=== PATIENT | female | born 1960 | race Caucasian/White ===

== ENCOUNTER 2017-07-30 09:02 | Emergency (ER) | payer MEDICAID, OTHER ==
[2017-07-30 09:57] VITALS: RESP 20; O2SAT 98
[2017-07-30 10:55] LABS: BASO % 0.8 % (0.0-2.0); EOS % 0.6 % (0.0-4.0); HEMOGLOBIN 13.5 g/dL (12.0-16.0); LYMPH # 1.1 K/uL (1.0-4.3); LYMPH % 22.5 % (20.0-40.0); MEAN CELL VOLUME 88.6 fl (81.0-99.0); MEAN CORPUSCULAR HEMOGLOBIN 29.9 pg (27.0-31.0); MEAN CORPUSCULAR HGB CONC 33.8 g/dL (33.0-37.0); MEAN PLATELET VOLUME 9.3 fl (7.2-11.7); MONO # 0.3 K/uL (0.0-0.8); MONO % 6.2 % (0.0-10.0); NEUT # 3.4 K/uL (1.8-7.0); NEUT % 69.9 % (50.0-75.0); NRBC % 0.1 % (0.0-0.0); RBC 4.52 Mil/uL (3.80-5.20); RED CELL DISTRIBUTION WIDTH 13.9 % (11.5-14.5); WHITE BLOOD COUNT 4.8 K/uL (4.8-10.8)
--- NOTE | 2017-07-30 11:04 | ED PDOC ---
HPI: Abdomen Time Seen by Provider: 07/30/17 09:54 Chief Complaint (Nursing): Abdominal Pain History Per: Patient History/Exam Limitations: no limitations Onset/Duration Of Symptoms: Gradual Current Symptoms Are (Timing): Still Present Severity: Mild Location Of Pain/Discomfort: LLQ Quality Of Discomfort: Dull, Aching Associated Symptoms: denies: Fever, Chills, Nausea, Vomiting, Diarrhea, Constipation, Urinary Symptoms Exacerbating Factors: None Alleviating Factors: None Additional History Per: Patient Additional Complaint(s): acc to pt she has left lower quadrant pain x 2 days. no trauma no urinary complaints Past Medical History Reviewed: Historical Data, Nursing Documentation, Vital Signs Vital Signs: Last Vital Signs Temp 98.5 F 07/30/17 09:55 Pulse 84 07/30/17 09:55 Resp 20 07/30/17 09:55 BP 140/84 07/30/17 09:55 Pulse Ox 98 07/30/17 11:14 - Medical History PMH: Osteoporosis - Surgical History Surgical History: Cholecystectomy - Family History Family History: States: No Known Family Hx - Living Arrangements Living Arrangements: With Family - Social History Current smoker - smoking cessation education provided: No - Home Medications Home Medications: Ambulatory Orders Medication Instructions Recorded Famotidine [Pepcid] 20 mg PO BID #10 tab 03/04/16 Ondansetron ODT [Zofran ODT] 4 mg PO Q8 PRN #8 odt 03/04/16 Amoxicillin/Clavulanate [Augmentin 1 tab PO BID #20 tab 07/30/17 875 MG-125 MG] Naproxen 500 mg PO BID PRN #20 ect 07/30/17 Polyethylene Glycol 3350 [Miralax] 17 gm PO DAILY 5 Days ml 07/30/17 - Allergies Allergies/Adverse Reactions: Allergies Allergy/AdvReac Type Severity Reaction Status Date / Time No Known Allergies Allergy Verified 07/30/17 09:55 Review of Systems ROS Statement: Except As Marked, All Systems Reviewed And Found Negative Constitutional: Negative for: Fever, Chills Cardiovascular: Negative for: Chest Pain, Palpitations Respiratory: Negative for: Cough, Shortness of Breath Gastrointestinal: Negative for: Nausea, Vomiting, Abdominal Pain Neurological: Negative for: Weakness, Numbness, Headache Physical Exam - Reviewed Nursing Documentation Reviewed: Yes Vital Signs Reviewed: Yes - Physical Exam Appears: Positive for: Uncomfortable Head Exam: Positive for: ATRAUMATIC, NORMAL INSPECTION, NORMOCEPHALIC Eye Exam: Positive for: Normal appearance, EOMI, PERRL Neck: Positive for: Normal, Painless ROM, Supple Cardiovascular/Chest: Positive for: Regular Rate, Rhythm, Chest Non Tender. Negative for: Murmur, Bradycardia, Tachycardia Respiratory: Positive for: Normal Breath Sounds. Negative for: Decreased Breath Sounds, Accessory Muscle Use, Rales, Rhonchi, Stridor, Wheezing Pulses-Radial (L): 2+ Pulses-Radial (R): 2+ Gastrointestinal/Abdominal: Positive for: Normal Exam, Bowel Sounds, Soft. Negative for: Tenderness, Organomegaly Back: Positive for: Normal Inspection. Negative for: L CVA Tenderness, R CVA Tenderness, Vertebral Tenderness Extremity: Positive for: Normal ROM. Negative for: Tenderness, Pedal Edema, Calf Tenderness, Deformity Neurologic/Psych: Positive for: Alert, finishing trimmer II-XII, Oriented. Negative for: Motor/Sensory Deficits - Laboratory Results Result Diagrams: 07/30/17 10:40 07/30/17 10:40 Urine dip results: Positive for: Blood (mod). Negative for: Leukocyte Esterase , Nitrate, Ketones, Glucose, Bilirubin, Protein - ECG ECG: Positive for: Interpreted By Me ECG Rhythm: Positive for: Normal QRS, Normal ST Segment, Sinus Rhythm (76). Negative for: ST/T Changes Interpretation Of Abn EKG: rate of 76, no evidence of ischemia O2 Sat by Pulse Oximetry: 98 Pulse Ox Interpretation: Normal - Progress ED Course And Treament: PROCEDURE: CT scan abdomen pelvis dated 07/30/2017 HISTORY: Left flank pain; rule out stone COMPARISON: Comparison made with CT scan of the abdomen pelvis 03/04/2016 TECHNIQUE: Contiguous helical/transaxial images of the abdomen and pelvis without oral or intravenous contrast material. . Additional 2 dimensional sagittal and coronal reformats generated. Radiation dose: Total exam DLP = This CT exam was performed using one or more of the following dose reduction techniques: Automated exposure control, adjustment of the mA and/or kV according to patient size, and/or use of iterative reconstruction technique. FINDINGS: LOWER THORAX: Small hiatal hernia with slight wall thickening of the distal esophagus likely due to protrusion of gastric mucosa. Possibility of esophagitis or other intrinsic/invasive wall lesion not excluded. . Heart size within range of normal. No significant pericardial effusion. LIVER: Liver exhibits normal size measuring approximately 16 cm in CC dimension. Liver demonstrates relatively normal attenuation pattern without mass collection or calcification.Previously noted mild intrahepatic biliary ductal dilatation less well seen on this study due to the lack of circulating intravenous contrast material. Findings could be due to post cholecystectomy status GALLBLADDER AND BILE DUCTS: Gallbladder is not visualized and presumably has been resected despite the lack of metallic clips in the gallbladder fossa. Clinical correlation with surgical history. Reason PANCREAS: Unremarkable. No mass. No ductal dilatation. SPLEEN: Spleen exhibits normal size. No obvious splenic masses or collections seen on this noncontrast study. Few scattered punctate splenic calcifications suggesting prior exposure to granulomatous disease process. ADRENALS: Unremarkable. KIDNEYS AND URETERS: No evidence of nephrolithiasis or hydronephrosis. Less well seen is a small approximately 11 mm cortical cyst posterior aspect midpole left kidney BLADDER: Urinary bladder incompletely distended which may account for slight thick- walled appearance. Rule out cystitis REPRODUCTIVE: Apparent hysterectomy APPENDIX: Normal-appearing appendix best seen on coronal image number [id number]. BOWEL: Evaluation of the bowel is somewhat limited due to the lack of oral contrast material. Stomach is incompletely distended which presumably accounts thick- walled appearance. The possibility of a gastritis not excluded. Visualized loops of small bowel exhibit normal contour and caliber. No evidence of acute mechanical small bowel obstruction. There is a large amount of stool seen throughout most of the colon (right side greater than left) consistent with fecal retention/constipation. Scattered colonic diverticula are present however no radiographic evidence of acute diverticulitis. PERITONEUM: Unremarkable. No fluid collection. No free air. Small fat containing umbilical hernia. In addition, there is small upper abdominal right parasagittal ventral wall hernia which contains some mesenteric fat. LYMPH NODES: Unremarkable. No enlarged lymph nodes. VASCULATURE: Unremarkable. No aortic aneurysm. BONES: Mild multilevel degenerative spondylosis of the lower thoracic and lumbar spine. OTHER FINDINGS: None. IMPRESSION: No evidence of nephrolithiasis or hydronephrosis. There is a small posterior cortical cyst midpole left kidney which less well seen due to the lack of circulating intravenous contrast material on the current exam. Incomplete urinary bladder distention likely accounts for slight thick-walled appearance however rule out cystitis with urinalysis correlation Findings consistent with constipation. Diverticulosis without definitive radiographic evidence of acute diverticulitis. Several tiny splenic calcifications consistent with calcified granulomata. Previously noted mild intrahepatic biliary ductal dilatation less well seen on this study due to the lack of circulating intravenous contrast material. Apparent cholecystectomy and hysterectomy. Clinical correlation recommended Small umbilical hernia and small upper abdominal right parasagittal ventral wall hernia advise antibiotics advise close f/u with pmd or med clinic, advise naproxen for pain all of pt's questions were answered and pt agree's with plan Re-evaluation Time: 12:41 Condition: Improved Disposition - Clinical Impression Clinical Impression: UTI (urinary tract infection) - Patient ED Disposition Is Patient to be Admitted: No Counseled Patient/Family Regarding: Studies Performed, Diagnosis, Need For Followup, Rx Given - Disposition Referrals: [facility] [Outside] (2 to 3 days) Disposition: Routine/Home Disposition Time: 12:42 Condition: GOOD Prescriptions: Amoxicillin/Clavulanate [Augmentin 875 MG-125 MG] 1 tab PO BID #20 tab Naproxen 500 mg PO BID PRN #20 ect PRN Reason: Pain, Moderate (4-7) Polyethylene Glycol 3350 [Miralax] 17 gm PO DAILY 5 Days ml Instructions: Urinary Tract Infections in Adults Forms: [employer] ([place]awk) Print Language: ESTONIAN
[2017-07-30 11:06] LABS: ALB/GLOB RATIO 1.1 (1.0-2.1); ALBUMIN 4.3 g/dL (3.5-5.0); ALT/SGPT 42 U/L (9-52); AMYLASE 95 U/L (30-110); AST/SGOT 35 U/L (14-36); BLOOD UREA NITROGEN 12 mg/dl (7-17); CALCIUM 9.2 mg/dL (8.4-10.2); GFR AFRICAN-AMERICAN > 60; GFR NON-AFRICAN AMERICAN > 60; LIPASE 92 U/L (23-300)
[2017-07-30 11:18] LABS: SQUAMOUS EPITHIAL 3 /hpf (0-5); URINE AMORPHOUS SEDIMENT RARE /ul (<OCC); URINE BACTERIA MOD (<OCC); URINE BILIRUBIN NEGATIVE (NEGATIVE); URINE BLOOD MODERATE (NEGATIVE); URINE CLARITY CLOUDY (Clear); URINE COLOR YELLOW (YELLOW); URINE GLUCOSE (UA) NEG (Normal); URINE HYALINE CAST 0-2 /hpf (0-2); URINE LEUKOCYTE ESTERASE NEG Leu/uL (Negative); URINE PROTEIN NEGATIVE (NEGATIVE); URINE UROBILINOGEN 0.2-1.0 mg/dL (0.2-1.0)
--- NOTE | 2017-07-30 11:57 | CT ---
PROCEDURE: CT scan abdomen pelvis dated 07/30/2017 HISTORY: Left flank pain; rule out stone COMPARISON: Comparison made with CT scan of the abdomen pelvis 03/04/2016 TECHNIQUE: Contiguous helical/transaxial images of the abdomen and pelvis without oral or intravenous contrast material. . Additional 2 dimensional sagittal and coronal reformats generated. Radiation dose: Total exam DLP = This CT exam was performed using one or more of the following dose reduction techniques: Automated exposure control, adjustment of the mA and/or kV according to patient size, and/or use of iterative reconstruction technique. FINDINGS: LOWER THORAX: Small hiatal hernia with slight wall thickening of the distal esophagus likely due to protrusion of gastric mucosa. Possibility of esophagitis or other intrinsic/invasive wall lesion not excluded. . Heart size within range of normal. No significant pericardial effusion. LIVER: Liver exhibits normal size measuring approximately 16 cm in CC dimension. Liver demonstrates relatively normal attenuation pattern without mass collection or calcification.Previously noted mild intrahepatic biliary ductal dilatation less well seen on this study due to the lack of circulating intravenous contrast material. Findings could be due to post cholecystectomy status GALLBLADDER AND BILE DUCTS: Gallbladder is not visualized and presumably has been resected despite the lack of metallic clips in the gallbladder fossa. Clinical correlation with surgical history. Reason PANCREAS: Unremarkable. No mass. No ductal dilatation. SPLEEN: Spleen exhibits normal size. No obvious splenic masses or collections seen on this noncontrast study. Few scattered punctate splenic calcifications suggesting prior exposure to granulomatous disease process. ADRENALS: Unremarkable. KIDNEYS AND URETERS: No evidence of nephrolithiasis or hydronephrosis. Less well seen is a small approximately 11 mm cortical cyst posterior aspect midpole left kidney BLADDER: Urinary bladder incompletely distended which may account for slight thick-walled appearance. Rule out cystitis REPRODUCTIVE: Apparent hysterectomy APPENDIX: Normal-appearing appendix best seen on coronal image number [id number]. BOWEL: Evaluation of the bowel is somewhat limited due to the lack of oral contrast material. Stomach is incompletely distended which presumably accounts thick-walled appearance. The possibility of a gastritis not excluded. Visualized loops of small bowel exhibit normal contour and caliber. No evidence of acute mechanical small bowel obstruction. There is a large amount of stool seen throughout most of the colon (right side greater than left) consistent with fecal retention/constipation. Scattered colonic diverticula are present however no radiographic evidence of acute diverticulitis. PERITONEUM: Unremarkable. No fluid collection. No free air. Small fat containing umbilical hernia. In addition, there is small upper abdominal right parasagittal ventral wall hernia which contains some mesenteric fat. LYMPH NODES: Unremarkable. No enlarged lymph nodes. VASCULATURE: Unremarkable. No aortic aneurysm. BONES: Mild multilevel degenerative spondylosis of the lower thoracic and lumbar spine. OTHER FINDINGS: None. IMPRESSION: No evidence of nephrolithiasis or hydronephrosis. There is a small posterior cortical cyst midpole left kidney which less well seen due to the lack of circulating intravenous contrast material on the current exam. Incomplete urinary bladder distention likely accounts for slight thick-walled appearance however rule out cystitis with urinalysis correlation Findings consistent with constipation. Diverticulosis without definitive radiographic evidence of acute diverticulitis. Several tiny splenic calcifications consistent with calcified granulomata. Previously noted mild intrahepatic biliary ductal dilatation less well seen on this study due to the lack of circulating intravenous contrast material. Apparent cholecystectomy and hysterectomy. Clinical correlation recommended Small umbilical hernia and small upper abdominal right parasagittal ventral wall hernia
[2017-07-30] MEDS ORDERED: Amoxicillin-Clav 875-125 mg Tab PO STA (12:43)
[2017-07-30 13:48] VITALS: BP 110/70; PULSE 78; TEMP 98.7
--- NOTE | 2017-07-31 12:53 | CARD ---
APPROVED REPORT EKG Measurement Heart [id number] <Conclusion> Normal sinus rhythm Normal ECG
== END 2017-07-30 13:48 | disposition home or self-care (01) ==
LOC: H.ER 09:02
DX: K42.9 Umbilical hernia without obstruction or gangrene (principal); N39.0 Urinary tract infection, site not specified; Z90.710 Acquired absence of both cervix and uterus
CPT/HCPCS: 74176; 80053; 81003; 82150; 83690; 84484; 85025; 93005; 96374; 99284; J1885